=== PATIENT | male | born 1975 | race Caucasian/White ===

== ENCOUNTER 2017-02-26 20:41 | Emergency (ER) | payer OTHER ==
[2017-02-26] MEDS ORDERED: TETRACAINE HCL 150 DROP BTL ONE (20:58)
[2017-02-26] MEDS ORDERED: NEOMYCIN/GRAMICIDIN/POLYMYXN B 100 DROP BTL EACHEYE ONE (21:03)
--- NOTE | 2017-02-26 21:16 | ERNOTE ---
ENT HPI Date of Service: 02/26/17 Presenting Symptoms: eye pain Time Seen by Provider: 02/26/17 21:11 Source: patient - Immun/Allergies/Home Medications Immunizations: IMMUNIZATION HX Immunizations Up to Date Yes History of Influenza Vaccine No Hx Pneumococcal Vaccination No Allergies/Adverse Reactions: Allergies Allergy/AdvReac Type Severity Reaction Status Date / Time No Known Allergies Allergy Unverified 12/23/14 02:23 Home Medications: HOME MEDICATIONS Amlodipine Besylate 5 mg PO DAILY 02/26/17 [Last Taken Unknown] Cephalexin Monohydrate [Keflex] 500 mg PO QID #40 cap 02/26/17 [Last Taken Unknown] Losartan/Hydrochlorothiazide [Hyzaar 100-25 Tablet] 1 each PO DAILY 02/26/17 [ Last Taken Unknown] - History of Present Illness Severity: Present: moderate ENT Location: Present: eye (R), eye (L) Prearrival Treatment: Present: no prearrival treatment Modifying Factors - Improves: Reports: nothing Modifying Factors - Worsens: Reports: nothing Associated Symptoms - ENT: Reports: denies symptoms Review of Systems - Review of Systems Constitutional: Present: See HPI EYE: Present: eye pain, eye discharge, other - swollen conjunctiva ENT: Present: no symptoms reported Respiratory: Present: no symptoms reported Cardiology: Present: no symptoms reported Gastrointestinal/Abdominal: Present: no symptoms reported Genitourinary: Present: no symptoms reported Musculoskeletal: Present: no symptoms reported Skin: Present: no symptoms reported - Patient's Past Medical History Patient History - Medical: Other Patient History - Cardiac/Respiratory: Hypertension Patient History - Cancer: No Hx of Cancer Patient History - Surgical Procedures: No surgical history Patient History - Other: None - Social History Living Situations: alone Psych History: No pertinent hx Smoking Status: Never smoker Have you smoked in the past 12 months: No Do you dip or chew tobacco: No Alcohol Use: occasionally Drug Use: none - Immunizations Immunizations Up to Date: Yes Hx Pneumococcal Vaccination: No History of Influenza Vaccine: No Physical Exam - Physical Exam General Appearance: Present: no apparent distress Head Exam: Present: normal inspection, no evidence of injury Eye Exam: PERRL: bilateral, Sclera injection: bilateral - bilateral conjunctiva inflamed and swollen, Eye drainage: bilateral - cleaR Ears, Nose, Throat: Present: normal ENT inspection Neck: Present: normal inspection, nontender Respiratory: Present: no respiratory distress, normal breath sounds, chest nontender, lungs clear Cardiovascular/Chest: Present: regular rate, rhythm, no murmur, normal peripheral pulses Peripheral Pulses: N=norm/S=strong/W=weak/B=bound/A=absent: Carotid (R): Normal , Carotid (L): Normal, Radial (R): Normal, Radial (L): Normal, Femoral (R): Normal, Femoral (L): Normal, Dorsalis-pedis (R): Normal, Dorsalis-pedis (L): Normal Gastrointestinal/Abdominal: Present: normal bowel sounds, nontender, nondistended, soft, no organomegaly Back Exam: Present: normal inspection, normal range of motion, no CVA tenderness , no vertebral tenderness Extremity Exam: Present: normal inspection, non-tender, normal range of motion, no edema Neurological Exam: Present: alert, oriented, normal mood/affect, no motor/ sensory deficits DTR: N=norm/NB=norm/brisk/A=abs/DD=dull/dimin/HC=hyperactive: Bicep (R): Normal , Bicep (L): Normal, Tricep (R): Normal, Tricep (L): Normal, Knee (R): Normal, Knee (L): Normal, Ankle (R): Normal, Ankle (L): Normal Skin Exam: Present: normal color, warm/dry Lymphatic Exam: Present: no adenopathy ED Progress - Vital Signs Vital Signs: Vital Signs 02/26/17 20:45 Temperature 36.5 C Pulse Rate 73 Respiratory 16 Rate Blood Pressure 174/94 O2 Sat by Pulse 98 Oximetry - Progress/Reassessment Chief Complaint: Eye Injury/Trauma Departure Clinical Impression: Conjunctivitis - Departure Disposition: Home self-care Condition: Fair Instructions: Chemical Conjunctivitis, [id number] Referrals: Arin Roland FNP [Primary Care Provider] - Prescriptions: Cephalexin Monohydrate [Keflex] 500 mg PO QID #40 cap
[2017-02-26 21:19] VITALS: BP 154/96
== END 2017-02-26 21:18 | disposition home or self-care (01) ==
LOC: ER 20:41
DX: H10.9 Unspecified conjunctivitis (principal); I10 Essential (primary) hypertension